=== PATIENT | male | born 1940 | race Caucasian/White ===

== ENCOUNTER 2016-12-27 08:28 | Emergency (ER) | payer OTHER ==
[~2016-12-27] VITALS: Ht 160 cm; Wt 90.8 kg
[~2016-12-27 08:28] MED LIST: ALDOMET250 MG PO; ALLOPURINOL100 MG; ALLOPURINOL100 MG PO; AMLODIPINE BESYL5 MG PO; ASPIRIN EC325 MG; ATENOLOL100 MG; ATENOLOL50 MG PO; ATORVASTATIN CA40 MG PO; ATORVASTATIN CA80 MG PO; ATORVASTATIN TAB 40M; AUGMENTIN875 MG PO; Advair 100/50 Diskus IH; Aspirin E.C. PO; B COMPLETE1 EACH PO; CARDURA2 M1 PO; CLOPIDOGREL75 MG; COLCRYS0.6 MG PO; CONTOUR1 EACH; CYANOCOBALAM1000 MCG; CYANOCOBALAM1000 MCG PO; Cardura PO; Colchicine,Colcrys PO; DICLOXACILLIN500 MG PO; DOXAZOSIN MESYLA2 MG; ECONAZOLE NITRA15 GM; ECONAZOLE NITRA15 GM TP; ENDOCET 5-3251 EACH PO; FENOFIBRATE200 M1; FENOFIBRATE200 M1 PO; FERREX 150150 MG PO; FERROUS SULFAT325 MG PO; FLORASTOR250 MG PO; FUROSEMIDE40 MG; Feosol PO; GAVILYTE-N SO4000 ML; HUMALOG100 UNIT/1; HUMALOG100 UNIT/1 SC; HUMALOG100 UNIT/2; HUMALOG100 UNIT/2 SC; HYCODAN SYRUP480 ML PO; HYDROCODONE-CH473 ML PO; IMDUR60 MG PO; ISOSORB MONO TAB 60M; Imdur PO; JANUVIA25 M1; JANUVIA25 M1 PO; Januvia PO; Keflex PO; LANTUS 10100 UNITS/ SC; LANTUS 3 M100 UNITS1; LANTUS 3 M100 UNITS1 SC; LASIX40 MG PO; LEVAQUIN500 MG PO; LIPITOR40 MG PO; LO-DOSE ASPIRIN81 M1 PO; LOFIBRA200 MG PO; LOSARTAN POTASS50 MG PO; LOVAZA1 GM; LOVAZA1 GM PO; Lasix PO; Lipitor PO; Lovaza PO; METHYLDOPA250 MG; METOPROLOL TAR100 MG PO; MICARDIS80 MG; MICARDIS80 MG PO; NIFEDICAL; NIFEDICAL XL30 MG PO; NITROSTAT0.4 MG; NITROSTAT0.4 MG SL; NovoLOG, HumaLOG SC; PLAVIX75 MG PO; PREDNISONE10 MG PO; PREDNISONE5 MG PO; PROAIR HFA8.5 GM IH; PROTONIX40 MG PO; Procardia XL,Adalat PO; Proventil,Ventolin H IH; RANITIDINE HCL150 M1; RANITIDINE HCL150 MG; SPECTAZOLE15 G1 TP; SPIRIVA1 INHALATI IH; TEKTURNA300 MG; TOPROL XL200 MG PO; TUSSIONEX PENN473 ML PO; TYLENOL ARTHRI650 MG PO; Tenormin PO; VITAMIN D-32000 UNI1 PO; VITAMIN D-32000 UNI2 PO; VITAMIN D2000 INTUN; Vitamin B-12 PO; Vitamin D PO; XARELTO15 MG; XARELTO15 MG PO; Xarelto PO; ZANTAC150 MG PO; Zantac PO; Zyloprim PO; [UNRECOGNIZED DRUG - SUPPLY]; colchicine; predniSONE PO
[2016-12-27 09:40] LABS: EOSINOPHIL (%) 7.6 % (0-5); EOSINOPHIL COUNT 0.5 K/uL (0-0.3); HEMATOCRIT 37.3 % (38.0-50.0); IMMATURE GRANULOCYTE (%) 0.4 % (0.0-0.7); INSTRUMENT ABS NEUTROPHIL CT 5.2 K/uL; LYMPHOCYTE COUNT 0.7 K/uL (1.0-2.8); MCH 33.1 PG (29.0-34.0); MCHC 33.2 G/DL (30.0-36.0); MCV 99.5 FL (86-99); MEAN PLAT.VOLUME 10.4 uM^3 (9.0-12.4); MONOCYTE (%) 7.9 % (3-12); MONOCYTE COUNT 0.6 K/uL (0-0.8); NEUTROPHIL (%) 73.6 % (45-76); NEUTROPHIL COUNT 5.2 K/uL (1.8-6.4); PLATELET COUNT 86 K/uL (156-360); RBC DIS.WIDTH-CV 14.6 % (11.8-14.6); RBC DIS.WIDTH-SD 52.9 % (39-53); RED BLOOD COUNT 3.75 M/uL (4.00-5.50); WHITE BLOOD COUNT 7.1 K/uL (4.1-10.2)
[2016-12-27 09:48] LABS: CHLORIDE 104 mEq/L (99-109); INTER. NORMALIZED RATIO 1.2; POTASSIUM 4.3 mEq/L (3.7-5.4); PROTHROMBIN TIME 12.3 (9.2-11.2); SODIUM 143 mEq/L (136-147)
[2016-12-27 09:49] LABS: GLUCOSE 169 mg/dL (70-99)
[2016-12-27 09:51] LABS: ANION GAP 12 MEQ/L (2-14)
[2016-12-27 09:53] LABS: GFR ESTIMATE (CALCULATED) 31 mL/min/
[2016-12-27 09:54] LABS: UREA NITROGEN (BUN) 47 mg/dL (9-23)
[2016-12-27 10:03] LABS: ADD MIUA? YES; BILIRUBIN NEGATIVE; BLOOD LARGE; COLOR RED ((YELLOW)); GLUCOSE (STRIP) NEGATIVE; KETONES NEGATIVE; LEUKOCYTES NEGATIVE; NITRITE NEGATIVE; PROTEIN (STRIP) 100; UROBILINOGEN 0.2 MG/DL (0.2-1.0)
[2016-12-27 10:07] LABS: RED BLOOD CELLS TNTC /HPF (0-5)
[2016-12-27 12:38] VITALS: BP 174/67
== END 2016-12-27 13:00 | disposition home or self-care (01) ==
LOC: EME 08:28
PROVIDERS: Emergency Medicine
DX: R31.9 Hematuria, unspecified (principal); Z79.02 Long term (current) use of antithrombotics/antiplatelets; Z87.442 Personal history of urinary calculi; J44.9 Chronic obstructive pulmonary disease, unspecified; Z85.46 Personal history of malignant neoplasm of prostate; I12.9 Hypertensive chronic kidney disease with stage 1 through stage 4 chronic kidney disease, or unspecified chronic kidney disease; E11.22 Type 2 diabetes mellitus with diabetic chronic kidney disease; N18.9 Chronic kidney disease, unspecified; Z79.4 Long term (current) use of insulin; E78.5 Hyperlipidemia, unspecified; Z95.1 Presence of aortocoronary bypass graft; Z95.5 Presence of coronary angioplasty implant and graft; Z95.811 Presence of heart assist device; Z87.891 Personal history of nicotine dependence
CPT/HCPCS: 71010; 74176; 80048; 81003; 85025; 85610; 99281; 99284

== ENCOUNTER → 2017-02-07 | Outpatient (CLI) | payer OTHER ==
[~2017-02-07] MED LIST changes: +ANORO ELLIPTA1 EACH IH; +BUMEX2 MG PO; +CASODEX50 MG PO
[2017-02-07 08:56] LABS: TYPE OF FLUID PARACENTESIS
[2017-02-07 09:46] LABS: BODY FLUID EOSINOPHILS 0 % (0-25); BODY FLUID RBC'S 9000 /MM^3 (0-100); BODY FLUID WBC'S 270 /MM^3 (0-500); MONONUCLEAR WBC'S 96 %; POLYNUCLEAR WBC'S 4 % (0-25)
== END | disposition home or self-care (01) ==
LOC: RAD 08:03
PROVIDERS: Radiology Diagnostic Radiology
PROC: 0W9G3ZZ Drainage of Peritoneal Cavity, Percutaneous Approach (ICD-10-PCS; principal; 2017-02-07)
DX: R18.8 Other ascites (principal); K74.60 Unspecified cirrhosis of liver
CPT/HCPCS: 87070; 87075; 87205; 88108; 88305; 89051

== ENCOUNTER 2017-06-20 09:42 | Inpatient (IN) | payer OTHER ==
[~2017-06-20] VITALS: Ht 162.6 cm; Wt 99.5 kg
[~2017-06-20 09:42] MED LIST changes: +COZAAR100 MG PO
[2017-06-20 10:36] LABS: EOSINOPHIL (%) 7.8 % (0-5); EOSINOPHIL COUNT 0.3 K/uL (0-0.3); HEMATOCRIT 40.7 % (38.0-50.0); IMMATURE GRANULOCYTE (%) 0.2 % (0.0-0.7); INSTRUMENT ABS NEUTROPHIL CT 2.7 K/uL; LYMPHOCYTE COUNT 0.4 K/uL (1.0-2.8); MCH 32.7 PG (29.0-34.0); MCHC 32.2 G/DL (30.0-36.0); MCV 101.5 FL (86-99); MEAN PLAT.VOLUME 10.9 uM^3 (9.0-12.4); MONOCYTE (%) 14.7 % (3-12); MONOCYTE COUNT 0.6 K/uL (0-0.8); NEUTROPHIL COUNT 2.7 K/uL (1.8-6.4); RBC DIS.WIDTH-CV 15.6 % (11.8-14.6); RBC DIS.WIDTH-SD 57.4 % (39-53); RED BLOOD COUNT 4.01 M/uL (4.00-5.50); WHITE BLOOD COUNT 4.1 K/uL (4.1-10.2)
[2017-06-20 10:38] LABS: PLATELET COUNT 64 K/uL (156-360)
[2017-06-20 10:52] LABS: CHLORIDE 100 mEq/L (99-109); POTASSIUM 5.5 mEq/L (3.7-5.4); SODIUM 139 mEq/L (136-147)
[2017-06-20 10:53] LABS: INFLUENZA A VIRAL ANTIGEN NEGATIVE; INFLUENZA B VIRAL ANTIGEN NEGATIVE
[2017-06-20 10:54] LABS: GLUCOSE 141 mg/dL (70-99)
[2017-06-20 10:55] LABS: ANION GAP 12 MEQ/L (2-14)
[2017-06-20 10:58] LABS: GFR ESTIMATE (CALCULATED) 19 mL/min/; TROP-I INTERPRETATION NEGATIVE; TROPONIN-I 0.18 ng/mL (0.0-0.30)
[2017-06-20 10:59] LABS: UREA NITROGEN (BUN) 67 mg/dL (9-23)
[2017-06-20] MEDS ORDERED: ZANTAC300 MG PO (13:11)
[2017-06-20] MEDS ORDERED: ZOFRAN4 MG PO (13:12)
[2017-06-20] MEDS ORDERED: SYNTHROID25 MCG PO (13:23)
[2017-06-20] MEDS ORDERED: BUMEX2 MG PO (13:27)
[2017-06-20 14:28] VITALS: BP 169/78
[2017-06-20 16:31] LABS: POINT-OF-CARE METER ID UU13113725
[2017-06-20 17:53] LABS: TROP-I INTERPRETATION NEGATIVE; TROPONIN-I 0.15 ng/mL (0.0-0.30)
[2017-06-20 20:26] VITALS: BP 162/72
[2017-06-20 21:26] LABS: POINT-OF-CARE METER ID UU13113725
[2017-06-20 23:47] LABS: TROP-I INTERPRETATION NEGATIVE; TROPONIN-I 0.11 ng/mL (0.0-0.30)
[2017-06-21] VITALS (7 sets, daily range): BP systolic 113–140; BP diastolic 57–80
[2017-06-21 06:03] LABS: ANION GAP 8 MEQ/L (2-14); CHLORIDE 97 MEQ/L (99-109); GFR ESTIMATE (CALCULATED) 19 mL/min/; GLUCOSE 159 mg/dL (70-99); POTASSIUM 5.1 MEQ/L (3.7-5.4); SAMPLE HEMOLYSIS CHECK 0; SAMPLE ICTERIC CHECK 0; SAMPLE LIPEMIA CHECK 0; SODIUM 137 MEQ/L (136-147); UREA NITROGEN (BUN) 67 mg/dL (9-23)
[2017-06-21 06:09] LABS: POINT-OF-CARE METER ID UU13113725
[2017-06-21 07:45] LABS: EOSINOPHIL (%) 0 % (0-5); HEMATOCRIT 35.2 % (38.0-50.0); IMMATURE GRANULOCYTE (%) 0.3 % (0.0-0.7); INSTRUMENT ABS NEUTROPHIL CT 3.3 K/uL; LYMPHOCYTE COUNT 0.3 K/uL (1.0-2.8); MCH 32.8 PG (29.0-34.0); MCHC 32.1 G/DL (30.0-36.0); MCV 102.3 FL (86-99); MEAN PLAT.VOLUME 11.9 uM^3 (9.0-12.4); MONOCYTE (%) 2.2 % (3-12); MONOCYTE COUNT 0.1 K/uL (0-0.8); NEUTROPHIL (%) 89.3 % (45-76); NEUTROPHIL COUNT 3.3 K/uL (1.8-6.4); PLATELET COUNT 57 K/uL (156-360); RBC DIS.WIDTH-CV 15.6 % (11.8-14.6); RBC DIS.WIDTH-SD 57.1 % (39-53); RED BLOOD COUNT 3.44 M/uL (4.00-5.50); WHITE BLOOD COUNT 3.6 K/uL (4.1-10.2)
[2017-06-21 11:34] LABS: POINT-OF-CARE METER ID UU13113725
[2017-06-21 16:46] LABS: POINT-OF-CARE METER ID UU13113725
[2017-06-21 21:49] LABS: POINT-OF-CARE METER ID UU13113725
[2017-06-22 05:12] VITALS: BP 168/73
[2017-06-22 06:19] LABS: ANION GAP 12 MEQ/L (2-14); CHLORIDE 98 MEQ/L (99-109); GFR ESTIMATE (CALCULATED) 21 mL/min/; GLUCOSE 132 mg/dL (70-99); POTASSIUM 5.1 MEQ/L (3.7-5.4); SAMPLE HEMOLYSIS CHECK 2; SAMPLE ICTERIC CHECK 0; SAMPLE LIPEMIA CHECK 0; SODIUM 140 MEQ/L (136-147); UREA NITROGEN (BUN) 74 mg/dL (9-23)
[2017-06-22 06:47] LABS: POINT-OF-CARE METER ID UU13113725
[2017-06-22 06:48] LABS: HEMATOCRIT 36.3 % (38.0-50.0); MCH 32.5 PG (29.0-34.0); MCHC 32.5 G/DL (30.0-36.0); RBC DIS.WIDTH-CV 15.4 % (11.8-14.6); RBC DIS.WIDTH-SD 55.8 % (39-53); RED BLOOD COUNT 3.63 M/uL (4.00-5.50); WHITE BLOOD COUNT 8.4 K/uL (4.1-10.2)
[2017-06-22 07:07] VITALS: BP 125/68
[2017-06-22 07:44] LABS: IMM.PLATELET FRACTION 4.6 (1-7); MEAN PLAT.VOLUME 12.2 uM^3 (9.0-12.4); PLAT.SUFFICIENCY DECREASED; PLATELET COUNT 42 K/uL (156-360)
[2017-06-22 10:30] LABS: POINT-OF-CARE METER ID UU13113725
[2017-06-22 11:26] LABS: POINT-OF-CARE METER ID UU13113725
[2017-06-22 11:28] VITALS: BP 133/69
[2017-06-22] MEDS ORDERED: VENTOLIN HFA18 GM IH (16:14)
[2017-06-22] MEDS ORDERED: PREDNISONE10 MG PO (16:15)
[2017-06-22 22:19] LABS: POINT-OF-CARE METER ID UU13113725
[2017-06-23 00:04] VITALS: BP 130/75
== END 2017-06-23 10:40 | disposition home or self-care (01) | DRG 292 ==
LOC: EME 09:42 → EDOF 12:43 → 5EAST 12:43 → ENRESERV 12:44 → 5EAST 14:05
PROVIDERS: Emergency Medicine; Family Medicine; Internal Medicine
DX: I13.0 Hypertensive heart and chronic kidney disease with heart failure and stage 1 through stage 4 chronic kidney disease, or unspecified chronic kidney disease (principal); I50.813 Acute on chronic right heart failure; I27.20 Pulmonary hypertension, unspecified; I27.81 Cor pulmonale (chronic); J44.1 Chronic obstructive pulmonary disease with (acute) exacerbation; E11.21 Type 2 diabetes mellitus with diabetic nephropathy; E11.22 Type 2 diabetes mellitus with diabetic chronic kidney disease; N18.4 Chronic kidney disease, stage 4 (severe); E11.319 Type 2 diabetes mellitus with unspecified diabetic retinopathy without macular edema; K21.9 Gastro-esophageal reflux disease without esophagitis; D64.9 Anemia, unspecified; D69.6 Thrombocytopenia, unspecified; E78.5 Hyperlipidemia, unspecified; G47.30 Sleep apnea, unspecified; I25.10 Atherosclerotic heart disease of native coronary artery without angina pectoris; I35.0 Nonrheumatic aortic (valve) stenosis; M10.9 Gout, unspecified; I48.2 Chronic atrial fibrillation; E66.01 Morbid (severe) obesity due to excess calories; Z95.0 Presence of cardiac pacemaker; Z23 Encounter for immunization; I25.2 Old myocardial infarction; Z95.1 Presence of aortocoronary bypass graft; Z95.5 Presence of coronary angioplasty implant and graft; Z85.46 Personal history of malignant neoplasm of prostate; Z87.891 Personal history of nicotine dependence; Z79.02 Long term (current) use of antithrombotics/antiplatelets; Z79.4 Long term (current) use of insulin
CPT/HCPCS: 71010; 80048; 82948; 83880; 84484; 85025; 85027; 87502; 90686; 93005; 93306; 94640; 94640 76; 94799; 99281; 99285; J0456; J0696; J1644; J1815; J1940; J2920; J2930; J7050

== ENCOUNTER → 2017-12-30 | Outpatient (CLI) | payer OTHER ==
[~2017-12-30] MED LIST changes: +COZAAR50 MG PO; +SYNTHROID25 MCG PO; +SYNTHROID50 MCG PO; +VENTOLIN HFA18 GM IH; +ZANTAC300 MG PO; +ZOFRAN4 MG PO
== END | disposition home or self-care (01) ==
LOC: RAD 11:44
PROC: 0W9G3ZZ Drainage of Peritoneal Cavity, Percutaneous Approach (ICD-10-PCS; principal; 2017-12-30)
DX: R18.8 Other ascites (principal)
CPT/HCPCS: 49083

== ENCOUNTER → 2018-02-20 | Outpatient (CLI) | payer OTHER ==
[~2018-02-20] MED LIST changes: -B COMPLETE1 EACH PO; +B-COMPLEX-VITA1 EACH PO; +BUMETANIDE2 MG PO; +CLOPIDOGREL75 MG PO; +COZAAR25 MG PO; +LEVOTHYROXINE50 MCG PO; +LIPITOR20 MG PO; +LOPRESSOR100 M1 PO; +NITROGLYCERIN0.4 MG SL; +OMEGA-3 ACID ETH1 GM PO; +ONDANSETRON HCL4 MG PO; +RANITIDINE HCL150 M1 PO; +RANITIDINE HCL300 M1 PO
[2018-02-20 09:17] LABS: TYPE OF FLUID PARACENTESIS
[2018-02-20 10:09] LABS: APPEARANCE CLEAR-YELLOW; BODY FLUID EOSINOPHILS 1 % (0-25); BODY FLUID RBC'S 1000 /MM^3 (0-100); BODY FLUID WBC'S 85 /MM^3 (0-500); MONONUCLEAR WBC'S 86 %; POLYNUCLEAR WBC'S 13 % (0-25)
== END | disposition home or self-care (01) ==
LOC: RAD 07:22
PROVIDERS: Internal Medicine Gastroenterology
PROC: 0W9G3ZZ Drainage of Peritoneal Cavity, Percutaneous Approach (ICD-10-PCS; principal; 2018-02-20)
DX: R18.8 Other ascites (principal)
CPT/HCPCS: 49083; 87070; 87205; 88108; 88305; 89051; P9047

== ENCOUNTER 2018-02-24 11:28 | Inpatient (IN) | payer OTHER ==
[~2018-02-24] VITALS: Ht 162.6 cm; Wt 86.0 kg
[2018-02-24] VITALS (7 sets, daily range): BP systolic 112–141; BP diastolic 55–66
[~2018-02-24 11:28] MED LIST changes: -B-COMPLEX-VITA1 EACH PO; -BUMETANIDE2 MG PO; -CLOPIDOGREL75 MG PO; -LEVOTHYROXINE50 MCG PO; -LOPRESSOR100 M1 PO; -NITROGLYCERIN0.4 MG SL; -OMEGA-3 ACID ETH1 GM PO; -ONDANSETRON HCL4 MG PO; -RANITIDINE HCL300 M1 PO
[2018-02-24 12:59] LABS: BASOPHIL (%) 0.1 % (0-1); EOSINOPHIL (%) 0.3 % (0-5); HEMATOCRIT 21.5 % (38.0-50.0); HEMOGLOBIN 7.1 G/DL (12.5-16.6); IMMATURE GRANULOCYTE (%) 0.7 % (0.0-0.7); LYMPHOCYTE (%) 3.6 % (15-42); LYMPHOCYTE COUNT 0.3 K/uL (1.0-2.8); MCH 34.6 PG (29.0-34.0); MCV 104.9 FL (86-99); MONOCYTE (%) 2.4 % (3-12); MONOCYTE COUNT 0.2 K/uL (0-0.8); NEUTROPHIL (%) 92.9 % (45-76); NRBC (%) 0.3 /100 WBC (0-0); PLATELET COUNT 115 K/uL (156-360); RBC DIS.WIDTH-CV 16.5 % (11.8-14.6); RBC DIS.WIDTH-SD 61.6 % (39-53); RED BLOOD COUNT 2.05 M/uL (4.00-5.50); WHITE BLOOD COUNT 8.6 K/uL (4.1-10.2)
[2018-02-24 13:14] LABS: APPEARANCE CLEAR ((CLEAR)); BILIRUBIN NEGATIVE; BLOOD NEGATIVE; COLOR YELLOW ((YELLOW)); GLUCOSE (STRIP) NEGATIVE; KETONES 5; LEUKOCYTES NEGATIVE; NITRITE NEGATIVE; PROTEIN (STRIP) 30; SPECIFIC GRAVITY 1.014 (1.000-1.030); UCUL ADDED? NO
[2018-02-24 13:23] LABS: TROP-I INTERPRETATION NEGATIVE; TROPONIN-I 0.27 ng/mL (0.0-0.30)
[2018-02-24 14:07] LABS: ALBUMIN 3.5 G/DL (3.2-4.8); ALKALINE PHOSPHATASE 64 IU/L (3-129); ALT (GPT) 13 IU/L (3-49); AST (GOT) 21 IU/L (2-34); CHLORIDE 96 MEQ/L (99-109); GFR ESTIMATE (CALCULATED) 12 mL/min/ (58.99-99999); GLUCOSE 145 mg/dL (70-99); POTASSIUM 5.5 MEQ/L (3.7-5.4); SODIUM 134 MEQ/L (136-147); TOTAL BILIRUBIN 1.4 MG/DL (0.0-1.0); TOTAL PROTEIN 5.6 G/DL (6.4-8.3); UREA NITROGEN (BUN) 60 mg/dL (9-23)
[2018-02-24 14:42] LABS: INTER. NORMALIZED RATIO 1.3
[2018-02-24 14:45] LABS: PTT 29.2 SEC (25-37)
[2018-02-24] MEDS ORDERED: BUMETANIDE2 MG PO (16:45)
[2018-02-24] MEDS ORDERED: NITROGLYCERIN0.4 MG SL (16:46)
[2018-02-24] MEDS ORDERED: RANITIDINE HCL300 M1 PO (16:47)
[2018-02-24] MEDS ORDERED: LEVOTHYROXINE50 MCG PO (16:50)
[2018-02-24] MEDS ORDERED: OMEGA-3 ACID ETH1 GM PO (16:52)
[2018-02-24] MEDS ORDERED: LOSARTAN POTASS50 MG PO (16:54)
[2018-02-24] MEDS ORDERED: PROAIR HFA8.5 GM IH (16:56)
[2018-02-24] MEDS ORDERED: CLOPIDOGREL75 MG PO (16:56)
[2018-02-24] MEDS ORDERED: ATORVASTATIN CA40 MG PO (16:58)
[2018-02-24] MEDS ORDERED: HYDROCODONE-CH473 ML PO (16:59)
[2018-02-24] MEDS ORDERED: ONDANSETRON HCL4 MG PO (17:00)
[2018-02-24] MEDS ORDERED: LOPRESSOR100 M1 PO (17:02)
[2018-02-24] MEDS ORDERED: B-COMPLEX-VITA1 EACH PO (17:10)
[2018-02-24 18:54] LABS: TROP-I INTERPRETATION NEGATIVE; TROPONIN-I 0.27 ng/mL (0.0-0.30)
[2018-02-24 19:55] LABS: HEMATOCRIT 25.3 % (38.0-50.0); HEMOGLOBIN 8.5 G/DL (12.5-16.6); MCV 103.7 FL (86-99)
[2018-02-25] VITALS (10 sets, daily range): BP systolic 94–150; BP diastolic 53–67
[2018-02-25 01:07] LABS: TROP-I INTERPRETATION NEGATIVE; TROPONIN-I 0.23 ng/mL (0.0-0.30)
[2018-02-25 06:45] LABS: HEMATOCRIT 22.5 % (38.0-50.0); HEMOGLOBIN 7.6 G/DL (12.5-16.6); MCH 34.5 PG (29.0-34.0); MCHC 33.8 G/DL (30.0-36.0); MCV 102.3 FL (86-99); NRBC (%) 0.4 /100 WBC (0-0); PLATELET COUNT 99 K/uL (156-360); RBC DIS.WIDTH-CV 17.4 % (11.8-14.6); RBC DIS.WIDTH-SD 61.1 % (39-53); WHITE BLOOD COUNT 8.5 K/uL (4.1-10.2)
[2018-02-25 07:06] LABS: ALBUMIN 4.2 G/DL (3.2-4.8); ALKALINE PHOSPHATASE 49 IU/L (3-129); ALT (GPT) 11 IU/L (3-49); AST (GOT) 15 IU/L (2-34); CHLORIDE 97 MEQ/L (99-109); CREATININE 5.4 MG/DL (0.6-1.3); GFR ESTIMATE (CALCULATED) 11 mL/min/ (58.99-99999); GLUCOSE 123 mg/dL (70-99); POTASSIUM 5.4 MEQ/L (3.7-5.4); SODIUM 134 MEQ/L (136-147); TOTAL PROTEIN 5.9 G/DL (6.4-8.3); UREA NITROGEN (BUN) 71 mg/dL (9-23)
[2018-02-25 07:18] LABS: TOTAL BILIRUBIN 1.7 MG/DL (0.0-1.0)
[2018-02-25 11:04] LABS: HEMATOCRIT 21.6 % (38.0-50.0); HEMOGLOBIN 7.2 G/DL (12.5-16.6); MCV 102.9 FL (86-99)
[2018-02-25 11:42] LABS: TYPE OF FLUID PARACENTESIS
[2018-02-25 12:01] LABS: APPEARANCE CLOUDY-BLOODY; BODY FLUID RBC'S 968000 /MM^3 (0-100); BODY FLUID WBC'S 148 /MM^3 (0-500)
[2018-02-25 13:23] LABS: BODY FLUID GLUCOSE 107 MG/DL; BODY FLUID LDH 130 IU/L
[2018-02-25 13:24] LABS: BODY FLUID PROTEIN 2.6 G/DL
[2018-02-25 14:07] LABS: BODY FLUID EOSINOPHILS 1 % (0-25); MONONUCLEAR WBC'S 93 %; POLYNUCLEAR WBC'S 6 % (0-25)
[2018-02-25 15:41] LABS: HEMATOCRIT 24.7 % (38.0-50.0); HEMOGLOBIN 8.1 G/DL (12.5-16.6); MCV 102.1 FL (86-99)
[2018-02-25 20:09] LABS: HEMATOCRIT 25.1 % (38.0-50.0); HEMOGLOBIN 8.5 G/DL (12.5-16.6); MCV 101.6 FL (86-99)
[2018-02-26 03:46] VITALS: BP 118/56
[2018-02-26 06:42] LABS: BASOPHIL (%) 0.3 % (0-1); EOSINOPHIL (%) 3.3 % (0-5); EOSINOPHIL COUNT 0.2 K/uL (0-0.3); HEMOGLOBIN 8.6 G/DL (12.5-16.6); IMMATURE GRANULOCYTE (%) 0.8 % (0.0-0.7); LYMPHOCYTE (%) 3.5 % (15-42); LYMPHOCYTE COUNT 0.2 K/uL (1.0-2.8); MCHC 33.1 G/DL (30.0-36.0); MCV 102.8 FL (86-99); MONOCYTE (%) 1.2 % (3-12); MONOCYTE COUNT 0.1 K/uL (0-0.8); NEUTROPHIL (%) 90.9 % (45-76); NEUTROPHIL COUNT 5.5 K/uL (1.8-6.4); NRBC (%) 0.5 /100 WBC (0-0); PLATELET COUNT 78 K/uL (156-360); RBC DIS.WIDTH-CV 17.3 % (11.8-14.6); RBC DIS.WIDTH-SD 60.9 % (39-53); RED BLOOD COUNT 2.53 M/uL (4.00-5.50); WHITE BLOOD COUNT 6.1 K/uL (4.1-10.2)
[2018-02-26 07:02] LABS: CHLORIDE 97 MEQ/L (99-109); CREATININE 4.6 MG/DL (0.6-1.3); GFR ESTIMATE (CALCULATED) 13 mL/min/ (58.99-99999); GLUCOSE 120 mg/dL (70-99); MAGNESIUM 2.1 mg/dl (1.3-2.7); PHOSPHORUS 4.2 mg/dL (2.5-4.9); POTASSIUM 4.9 MEQ/L (3.7-5.4); SODIUM 137 MEQ/L (136-147); UREA NITROGEN (BUN) 68 mg/dL (9-23)
[2018-02-26 07:05] VITALS: BP 117/56
[2018-02-26 10:30] VITALS: BP 134/56
[2018-02-26 12:48] LABS: HEMATOCRIT 25.4 % (38.0-50.0); HEMOGLOBIN 8.4 G/DL (12.5-16.6); MCV 102.4 FL (86-99)
[2018-02-26 15:40] VITALS: BP 131/57
[2018-02-26 16:43] LABS: BODY FLUID PH 7.8 (())
[2018-02-26 20:07] VITALS: BP 121/57
[2018-02-26 23:52] VITALS: BP 117/58
[2018-02-27 03:30] VITALS: BP 115/57
[2018-02-27 07:24] LABS: HEMATOCRIT 22.9 % (38.0-50.0); HEMOGLOBIN 7.6 G/DL (12.5-16.6); MCH 34.1 PG (29.0-34.0); MCHC 33.2 G/DL (30.0-36.0); MCV 102.7 FL (86-99); PLATELET COUNT 66 K/uL (156-360); RBC DIS.WIDTH-CV 17.1 % (11.8-14.6); RBC DIS.WIDTH-SD 58.9 % (39-53); RED BLOOD COUNT 2.23 M/uL (4.00-5.50)
[2018-02-27 07:37] LABS: CHLORIDE 99 MEQ/L (99-109); CREATINE KINASE 23 IU/L (1-294); CREATININE 3.9 MG/DL (0.6-1.3); GFR ESTIMATE (CALCULATED) 16 mL/min/ (58.99-99999); GLUCOSE 132 mg/dL (70-99); POTASSIUM 4.6 MEQ/L (3.7-5.4); SODIUM 136 MEQ/L (136-147); UREA NITROGEN (BUN) 68 mg/dL (9-23)
[2018-02-27 08:07] VITALS: BP 120/60
[2018-02-27 12:12] VITALS: BP 179/77
[2018-02-27 15:56] VITALS: BP 155/69
[2018-02-27 16:01] LABS: HEMATOCRIT 28.4 % (38.0-50.0); HEMOGLOBIN 9.5 G/DL (12.5-16.6); MCV 102.9 FL (86-99)
[2018-02-27 19:43] VITALS: BP 99/51
[2018-02-28] VITALS (8 sets, daily range): BP systolic 105–164; BP diastolic 51–71
[2018-02-28 06:16] LABS: BASOPHIL (%) 0.5 % (0-1); EOSINOPHIL (%) 6.8 % (0-5); EOSINOPHIL COUNT 0.4 K/uL (0-0.3); HEMATOCRIT 26.1 % (38.0-50.0); HEMOGLOBIN 8.4 G/DL (12.5-16.6); IMMATURE GRANULOCYTE (%) 1.3 % (0.0-0.7); LYMPHOCYTE (%) 3.7 % (15-42); LYMPHOCYTE COUNT 0.2 K/uL (1.0-2.8); MCH 33.5 PG (29.0-34.0); MCHC 32.2 G/DL (30.0-36.0); MONOCYTE (%) 1.5 % (3-12); MONOCYTE COUNT 0.1 K/uL (0-0.8); NEUTROPHIL (%) 86.2 % (45-76); NEUTROPHIL COUNT 4.7 K/uL (1.8-6.4); RBC DIS.WIDTH-CV 17.2 % (11.8-14.6); RBC DIS.WIDTH-SD 61.9 % (39-53); RED BLOOD COUNT 2.51 M/uL (4.00-5.50); WHITE BLOOD COUNT 5.5 K/uL (4.1-10.2)
[2018-02-28 06:38] LABS: CHLORIDE 98 MEQ/L (99-109); CREATININE 3.3 MG/DL (0.6-1.3); GFR ESTIMATE (CALCULATED) 19 mL/min/ (58.99-99999); GLUCOSE 126 mg/dL (70-99); POTASSIUM 4.6 MEQ/L (3.7-5.4); SODIUM 135 MEQ/L (136-147); UREA NITROGEN (BUN) 66 mg/dL (9-23)
[2018-02-28 06:47] LABS: PLAT.SUFFICIENCY DECREASED; PLATELET COUNT 74 K/uL (156-360)
[2018-03-01] VITALS (8 sets, daily range): BP systolic 114–173; BP diastolic 56–77
[2018-03-01 06:12] LABS: HEMATOCRIT 24.3 % (38.0-50.0); HEMOGLOBIN 7.9 G/DL (12.5-16.6); MCH 33.6 PG (29.0-34.0); MCHC 32.5 G/DL (30.0-36.0); MCV 103.4 FL (86-99); PLATELET COUNT 67 K/uL (156-360); RBC DIS.WIDTH-CV 16.7 % (11.8-14.6); RBC DIS.WIDTH-SD 60.9 % (39-53); RED BLOOD COUNT 2.35 M/uL (4.00-5.50)
[2018-03-01 06:34] LABS: CHLORIDE 98 MEQ/L (99-109); CREATININE 3.1 MG/DL (0.6-1.3); GFR ESTIMATE (CALCULATED) 21 mL/min/ (58.99-99999); GLUCOSE 132 mg/dL (70-99); POTASSIUM 5.1 MEQ/L (3.7-5.4); SODIUM 135 MEQ/L (136-147); UREA NITROGEN (BUN) 74 mg/dL (9-23)
[2018-03-02 06:13] LABS: HEMATOCRIT 27.9 % (38.0-50.0); MCH 32.7 PG (29.0-34.0); MCHC 32.3 G/DL (30.0-36.0); MCV 101.5 FL (86-99); NRBC (%) 0.4 /100 WBC (0-0); PLATELET COUNT 74 K/uL (156-360); RBC DIS.WIDTH-CV 17.1 % (11.8-14.6); RED BLOOD COUNT 2.75 M/uL (4.00-5.50); WHITE BLOOD COUNT 5.4 K/uL (4.1-10.2)
[2018-03-02 06:40] LABS: ALBUMIN 4.1 G/DL (3.2-4.8); CHLORIDE 99 MEQ/L (99-109); CREATININE 2.7 MG/DL (0.6-1.3); GFR ESTIMATE (CALCULATED) 24 mL/min/ (58.99-99999); GLUCOSE 126 mg/dL (70-99); POTASSIUM 4.7 MEQ/L (3.7-5.4); SODIUM 134 MEQ/L (136-147); UREA NITROGEN (BUN) 84 mg/dL (9-23)
[2018-03-02 07:00] VITALS: BP 140/65
[2018-03-02] MEDS ORDERED: APRESOLINE10 MG PO (12:52)
== END 2018-03-02 14:20 | disposition home or self-care (01) | DRG 393 ==
LOC: EME 11:28 → 5EAST 15:21 → EDOF 15:21 → ENRESERV 15:26 → CANRESERV 15:26 → ENRESERV 15:50 → 5EAST 17:16
PROVIDERS: Emergency Medicine; Hospitalist; Internal Medicine Gastroenterology; Internal Medicine Nephrology; Physician Assistant
PROC: 30233N1 Transfusion of Nonautologous Red Blood Cells into Peripheral Vein, Percutaneous Approach (ICD-10-PCS; principal; 2018-02-24)
PROC: 0W9G3ZZ Drainage of Peritoneal Cavity, Percutaneous Approach (ICD-10-PCS; 2018-02-25)
DX: K66.1 Hemoperitoneum (principal); R18.8 Other ascites; D62 Acute posthemorrhagic anemia; N17.0 Acute kidney failure with tubular necrosis; T50.1X5A Adverse effect of loop [high-ceiling] diuretics, initial encounter; T46.5X5A Adverse effect of other antihypertensive drugs, initial encounter; D63.1 Anemia in chronic kidney disease; E87.1 Hypo-osmolality and hyponatremia; I13.0 Hypertensive heart and chronic kidney disease with heart failure and stage 1 through stage 4 chronic kidney disease, or unspecified chronic kidney disease; I50.9 Heart failure, unspecified; E11.22 Type 2 diabetes mellitus with diabetic chronic kidney disease; N18.4 Chronic kidney disease, stage 4 (severe); K21.9 Gastro-esophageal reflux disease without esophagitis; J44.9 Chronic obstructive pulmonary disease, unspecified; G47.30 Sleep apnea, unspecified; E78.5 Hyperlipidemia, unspecified; G43.909 Migraine, unspecified, not intractable, without status migrainosus; I27.20 Pulmonary hypertension, unspecified; I25.10 Atherosclerotic heart disease of native coronary artery without angina pectoris; M10.9 Gout, unspecified; E66.01 Morbid (severe) obesity due to excess calories; E87.2 Acidosis; E87.5 Hyperkalemia; I48.2 Chronic atrial fibrillation; K74.60 Unspecified cirrhosis of liver; E88.81 Metabolic syndrome and other insulin resistance; I42.0 Dilated cardiomyopathy; E03.9 Hypothyroidism, unspecified; I08.3 Combined rheumatic disorders of mitral, aortic and tricuspid valves; K59.00 Constipation, unspecified; I25.2 Old myocardial infarction; Z85.46 Personal history of malignant neoplasm of prostate; Z95.1 Presence of aortocoronary bypass graft; Z95.5 Presence of coronary angioplasty implant and graft; Z95.0 Presence of cardiac pacemaker; Z79.02 Long term (current) use of antithrombotics/antiplatelets; Z79.4 Long term (current) use of insulin; Z87.891 Personal history of nicotine dependence; Z68.32 Body mass index [BMI] 32.0-32.9, adult
CPT/HCPCS: 49083; 71045; 72128; 74176; 76705; 76770; 80048; 80053; 80069; 81003; 82140; 82436; 82550; 82945; 82948; 83605; 83615 91; 83735; 83880; 83986 90; 84100; 84133; 84157; 84300; 84484; 85014; 85018; 85025; 85027; 85610; 85730; 86850; 86900; 86901; 86920; 87040; 87070; 87075; 87205; 89051; 93005; 93306; 94799; 99281; 99285; J1815; P9016; P9047

== ENCOUNTER → 2018-03-18 | Outpatient (CLI) | payer OTHER ==
[~2018-03-18] MED LIST changes: +APRESOLINE10 MG PO; +B-COMPLEX-VITA1 EACH PO; +BUMETANIDE2 MG PO; +CLOPIDOGREL75 MG PO; +LEVOTHYROXINE50 MCG PO; +LOPRESSOR100 M1 PO; +NITROGLYCERIN0.4 MG SL; +OMEGA-3 ACID ETH1 GM PO; +ONDANSETRON HCL4 MG PO; +RANITIDINE HCL300 M1 PO
== END | disposition home or self-care (01) ==
LOC: RAD 12:25
PROC: 0W9G3ZZ Drainage of Peritoneal Cavity, Percutaneous Approach (ICD-10-PCS; principal; 2018-03-18)
DX: R18.8 Other ascites (principal)
CPT/HCPCS: 49083

== ENCOUNTER → 2018-03-31 | Outpatient (CLI) | payer OTHER | END | disposition home or self-care (01) | LOC: RAD 12:17 | PROC: 0W9G3ZZ Drainage of Peritoneal Cavity, Percutaneous Approach (ICD-10-PCS; principal; 2018-03-31) | DX: R18.8 Other ascites (principal) | CPT/HCPCS: 49083 ==

== ENCOUNTER 2018-04-07 09:25 | Emergency (ER) | payer OTHER ==
[~2018-04-07] VITALS: Ht 162.6 cm; Wt 71.9 kg
[2018-04-07 12:09] LABS: ALBUMIN 3.6 g/dL (3.2-4.8)
[2018-04-07 12:10] LABS: CHLORIDE 102 mEq/L (99-109); POTASSIUM 4.1 mEq/L (3.7-5.4); SODIUM 141 mEq/L (136-147)
[2018-04-07 12:11] LABS: TROP-I INTERPRETATION NEGATIVE; TROPONIN-I 0.08 ng/mL (0.0-0.30)
[2018-04-07 12:12] LABS: GLUCOSE 106 mg/dL (70-99); TOTAL PROTEIN 6.5 g/dL (6.4-8.3)
[2018-04-07 12:14] LABS: TOTAL BILIRUBIN 1.1 mg/dL (0.0-1.0)
[2018-04-07 12:15] LABS: ALKALINE PHOSPHATASE 112 IU/L (3-129)
[2018-04-07 12:16] LABS: CREATININE 1.6 mg/dL (0.6-1.3); GFR ESTIMATE (CALCULATED) 45 mL/min/ (58.99-99999)
[2018-04-07 12:17] LABS: AST (GOT) 21 IU/L (2-34); UREA NITROGEN (BUN) 43 mg/dL (9-23)
[2018-04-07 12:18] LABS: ALT (GPT) 10 IU/L (3-49)
[2018-04-07 13:01] LABS: BASOPHIL (%) 0.4 % (0-1); EOSINOPHIL (%) 4.1 % (0-5); EOSINOPHIL COUNT 0.2 K/uL (0-0.3); HEMATOCRIT 27.7 % (38.0-50.0); HEMOGLOBIN 9.3 G/DL (12.5-16.6); IMMATURE GRANULOCYTE (%) 0.7 % (0.0-0.7); LYMPHOCYTE (%) 4.8 % (15-42); LYMPHOCYTE COUNT 0.3 K/uL (1.0-2.8); MCH 33.3 PG (29.0-34.0); MCHC 33.6 G/DL (30.0-36.0); MCV 99.3 FL (86-99); MONOCYTE (%) 4.1 % (3-12); MONOCYTE COUNT 0.2 K/uL (0-0.8); NEUTROPHIL (%) 85.9 % (45-76); NEUTROPHIL COUNT 4.8 K/uL (1.8-6.4); PLATELET COUNT 96 K/uL (156-360); RBC DIS.WIDTH-CV 15.9 % (11.8-14.6); RBC DIS.WIDTH-SD 58.2 % (39-53); RED BLOOD COUNT 2.79 M/uL (4.00-5.50); WHITE BLOOD COUNT 5.6 K/uL (4.1-10.2)
[2018-04-07 13:07] LABS: INTER. NORMALIZED RATIO 1.2
[2018-04-07 13:15] LABS: APPEARANCE CLEAR ((CLEAR)); BILIRUBIN NEGATIVE; BLOOD MODERATE; COLOR YELLOW ((YELLOW)); GLUCOSE (STRIP) NEGATIVE; KETONES 5; LEUKOCYTES NEGATIVE; NITRITE NEGATIVE; PROTEIN (STRIP) 100; SPECIFIC GRAVITY 1.015 (1.000-1.030); UROBILINOGEN 0.2 MG/DL (0.2-1.0)
[2018-04-07 13:36] LABS: BACTERIA NONE SEEN /HPF; EPITHELIAL CELLS RARE /HPF; MUCUS TRACE /LPF; RED BLOOD CELLS 0-5 /HPF (0-5); UCUL ADDED? NO; WHITE BLOOD CELLS 0-5 /HPF (0-5)
[2018-04-07 14:08] VITALS: BP 153/80
== END 2018-04-07 14:25 | disposition home or self-care (01) ==
LOC: EME 09:25
PROVIDERS: Emergency Medicine
DX: R53.1 Weakness (principal); T40.2X5A Adverse effect of other opioids, initial encounter; N18.9 Chronic kidney disease, unspecified; K74.60 Unspecified cirrhosis of liver; K72.10 Chronic hepatic failure without coma; G89.29 Other chronic pain; M54.9 Dorsalgia, unspecified; E78.5 Hyperlipidemia, unspecified; I50.9 Heart failure, unspecified; K21.9 Gastro-esophageal reflux disease without esophagitis; J43.9 Emphysema, unspecified; I25.2 Old myocardial infarction; Z87.442 Personal history of urinary calculi; Z87.891 Personal history of nicotine dependence; Z95.1 Presence of aortocoronary bypass graft; Z95.0 Presence of cardiac pacemaker; Z85.46 Personal history of malignant neoplasm of prostate
CPT/HCPCS: 70450; 71045; 80053; 81003; 82140; 83605; 84484; 85025; 85610; 85730; 87040; 93005; 99281; 99284

== ENCOUNTER 2018-04-14 13:25 | Emergency (ER) | payer OTHER ==
[~2018-04-14] VITALS: Ht 162.6 cm; Wt 72.0 kg
[2018-04-14 14:27] LABS: HEMATOCRIT 29.4 % (38.0-50.0); HEMOGLOBIN 9.8 G/DL (12.5-16.6); MCH 32.9 PG (29.0-34.0); MCHC 33.3 G/DL (30.0-36.0); MCV 98.7 FL (86-99); RBC DIS.WIDTH-CV 15.9 % (11.8-14.6); RBC DIS.WIDTH-SD 56.9 % (39-53); RED BLOOD COUNT 2.98 M/uL (4.00-5.50); WHITE BLOOD COUNT 5.4 K/uL (4.1-10.2)
[2018-04-14 14:28] LABS: PLATELET COUNT 142 K/uL (156-360)
[2018-04-14 14:37] LABS: ALBUMIN 3.5 g/dL (3.2-4.8); CHLORIDE 101 mEq/L (99-109); POTASSIUM 5.5 mEq/L (3.7-5.4); SODIUM 140 mEq/L (136-147)
[2018-04-14 14:39] LABS: GLUCOSE 108 mg/dL (70-99)
[2018-04-14 14:40] LABS: TOTAL PROTEIN 6.7 g/dL (6.4-8.3)
[2018-04-14 14:43] LABS: ALKALINE PHOSPHATASE 113 IU/L (3-129); GFR ESTIMATE (CALCULATED) 34 mL/min/ (58.99-99999)
[2018-04-14 14:44] LABS: UREA NITROGEN (BUN) 51 mg/dL (9-23)
[2018-04-14 14:45] LABS: AST (GOT) 18 IU/L (2-34)
[2018-04-14 14:46] LABS: ALT (GPT) 12 IU/L (3-49)
[2018-04-14 21:11] LABS: TROP-I INTERPRETATION NEGATIVE; TROPONIN-I 0.06 ng/mL (0.0-0.30)
[2018-04-14 21:17] LABS: TROP-I INTERPRETATION NEGATIVE; TROPONIN-I 0.03 ng/mL (0.0-0.30)
[2018-04-14 23:59] VITALS: BP 151/69
== END 2018-04-15 00:08 | disposition left against medical advice (07) ==
LOC: EME 13:25
PROVIDERS: Physician Assistant Medical
DX: K59.00 Constipation, unspecified (principal); J81.1 Chronic pulmonary edema; R06.02 Shortness of breath; J44.9 Chronic obstructive pulmonary disease, unspecified; I50.9 Heart failure, unspecified; E78.5 Hyperlipidemia, unspecified; E11.22 Type 2 diabetes mellitus with diabetic chronic kidney disease; N18.9 Chronic kidney disease, unspecified; I25.2 Old myocardial infarction; G47.30 Sleep apnea, unspecified; I48.91 Unspecified atrial fibrillation; K21.9 Gastro-esophageal reflux disease without esophagitis; K74.60 Unspecified cirrhosis of liver; Z85.46 Personal history of malignant neoplasm of prostate; Z95.1 Presence of aortocoronary bypass graft; Z95.0 Presence of cardiac pacemaker; Z87.442 Personal history of urinary calculi; Z79.4 Long term (current) use of insulin; Z87.891 Personal history of nicotine dependence
CPT/HCPCS: 71045; 74176; 80053; 81003; 83605; 83880; 84484; 85027; 93005; 94640; 99281; 99285

== ENCOUNTER → 2018-04-14 | Outpatient (CLI) | payer OTHER | END | disposition home or self-care (01) | LOC: RAD 12:34 | PROC: 0W9G3ZZ Drainage of Peritoneal Cavity, Percutaneous Approach (ICD-10-PCS; principal; 2018-04-14) | DX: R18.8 Other ascites (principal); R60.9 Edema, unspecified; I27.20 Pulmonary hypertension, unspecified; Z53.09 Procedure and treatment not carried out because of other contraindication | CPT/HCPCS: 76705 ==